=== PATIENT | female | born 1980 | race Caucasian/White ===

== ENCOUNTER 2016-12-03 10:06 | Emergency (ER) | payer OTHER ==
[~2016-12-03] VITALS: Ht 154.9 cm; Wt 51.7 kg
[2016-12-03 10:16] VITALS: BP 107/53; PULSE 92; RESP 20; TEMP 98.2; O2SAT 97
[2016-12-03] MEDS ORDERED: ACETAMINOPHEN 325 MG TABLET PO ONE (10:45)
[2016-12-03 13:40] VITALS: BP 125/75; PULSE 81; RESP 19; TEMP 97.2; O2SAT 99
[2016-12-03 13:41] LABS: BILIRUBIN,URINE NEGATIVE (NEGATIVE); BLOOD, URINE NEGATIVE (NEGATIVE); CLARITY/URINE CLEAR (CLEAR); COLOR,URINE YELLOW (YELLOW); GLUCOSE,URINE NEGATIVE (NEGATIVE); KETONES,URINE TRACE (NEGATIVE); LEUKOCYTE ESTERASE ,URINE NEGATIVE (NEGATIVE); NITRITE, URINE NEGATIVE (NEGATIVE); PROTEIN URINE NEGATIVE (NEGATIVE); UROBILINOGEN,URINE 0.2 (0.2-1.0)
== END 2016-12-03 13:40 | disposition home or self-care (01) ==
LOC: SED 10:06
DX: O22.02 Varicose veins of lower extremity in pregnancy, second trimester (principal); Z3A.18 18 weeks gestation of pregnancy
CPT/HCPCS: 81003; 93971; 99285